=== PATIENT | male | born 1960 | race Caucasian/White ===

== ENCOUNTER 2021-09-07 19:47 | Emergency (ER) | payer OTHER ==
[~2021-09-07] VITALS: Ht 175.3 cm; Wt 120.0 kg
[2021-09-07 20:35] LABS: HEMOGLOBIN 11.6 g/dl (14.0-18.0); IMMATURE GRANULOCYTES 0.1 % (0.0-5.0); MEAN CELL VOLUME 84.6 fL CALC (80.0-100.0); MEAN CORPUSCULAR HGB 28.9 pG CALC (26.0-32.0); MEAN CORPUSCULAR HGB CONC 34.1 g/dL CAL (32.0-36.0); NEUT# 4.68 thou/uL (1.82-7.42); RED BLOOD COUNT 4.02 mill/uL (4.70-6.10); RED CELL DISTRI WIDTH 14.6 % (11.5-15.5)
[2021-09-07 20:49] LABS: ALBUMIN 3.7 g/dL (3.2-5.0); ALKALINE PHOSPHATASE 88 u/l (38-126); ANION GAP 10 (6-22 (CALC)); BILIRUBIN, TOTAL 1.2 mg/dL (0.0-1.4); BUN 20 mg/dL (8-23); BUN/CREATININE RATIO 14 (12-20 (CALC)); CARBON DIOXIDE 29 mmol/l (22-30); CHLORIDE 104 mmol/l (95-108); CREATININE 1.4 mg/dL (0.7-1.3); GFR 52 ML/MIN (>=60 (CALC)); GFR FOR AFR.AMER. > 60 ML/MIN (>=60 (CALC)); POTASSIUM 3.4 mmol/l (3.5-5.1); SGOT/AST 33 u/l (19-48); SODIUM 140 mmol/l (137-146); TOTAL PROTEIN 6.8 g/dL (6.3-8.2)
[2021-09-07 20:51] LABS: ACT PARTIAL THROMBO TIME 27.4 SECONDS (20.0-32.5); INTERNATIONAL NORMALIZED RATIO 1.4 RATIO (0.7-1.3)
[2021-09-07] MEDS ORDERED: METOLAZONE5 MG PO (22:11)
[2021-09-07] MEDS ORDERED: BACTRIM DS1 TAB PO (22:11)
[2021-09-07 22:13] VITALS: BP 151/77
== END 2021-09-07 22:36 | disposition home or self-care (01) ==
LOC: ED 19:47
PROVIDERS: Family Medicine
PROC: 0H9AXZZ Drainage of Inguinal Skin, External Approach (ICD-10-PCS; principal; 2021-09-07)
DX: L02.214 Cutaneous abscess of groin (principal); I11.0 Hypertensive heart disease with heart failure; I50.9 Heart failure, unspecified; E11.9 Type 2 diabetes mellitus without complications; Z86.73 Personal history of transient ischemic attack (TIA), and cerebral infarction without residual deficits

== ENCOUNTER 2021-09-10 10:58 | Emergency (ER) | payer OTHER ==
[~2021-09-10] VITALS: Ht 175.3 cm; Wt 120.0 kg
[~2021-09-10 10:58] MED LIST: BACTRIM DS1 TAB PO; METOLAZONE5 MG PO
[2021-09-10 12:17] VITALS: BP 139/66
== END 2021-09-10 12:23 | disposition home or self-care (01) | DRG 951 ==
LOC: ED 10:58
DX: Z48.01 Encounter for change or removal of surgical wound dressing (principal)

== ENCOUNTER 2022-08-17 12:53 | Inpatient (IN) | payer OTHER ==
[~2022-08-17] VITALS: Ht 175.3 cm; Wt 120.2 kg
[2022-08-17] VITALS (16 sets, daily range): BP systolic 119–152; BP diastolic 57–78
[2022-08-17 13:43] LABS: HEMATOCRIT 38.1 % (39.0-50.0); HEMOGLOBIN 13.1 g/dl (14.0-18.0); IMMATURE GRANULOCYTES 0.3 % (0.0-5.0); MEAN CELL VOLUME 88.4 fL CALC (80.0-100.0); MEAN CORPUSCULAR HGB 30.4 pG CALC (26.0-32.0); MEAN CORPUSCULAR HGB CONC 34.4 g/dL CAL (32.0-36.0); RED BLOOD COUNT 4.31 mill/uL (4.70-6.10); RED CELL DISTRI WIDTH 14.1 % (11.5-15.5)
[2022-08-17 13:55] LABS: ALBUMIN 3.8 g/dL (3.2-5.0); ALKALINE PHOSPHATASE 91 u/l (38-126); BUN 22 mg/dL (8-23); BUN/CREATININE RATIO 18 (12-20 (CALC)); CHLORIDE 108 mmol/l (95-108); CREATININE 1.3 mg/dL (0.7-1.3); GFR FOR AFR.AMER. > 60 ML/MIN (>=60 (CALC)); GFR OTHER RACES 56 ML/MIN (>=60 (CALC)); SGOT/AST 42 u/l (19-48); SODIUM 141 mmol/l (137-146); TOTAL PROTEIN 6.7 g/dL (6.3-8.2)
[2022-08-17 13:58] LABS: ANION GAP 16 (6-22 (CALC)); BILIRUBIN, TOTAL 2.2 mg/dL (0.0-1.4); CARBON DIOXIDE 21 mmol/l (22-30); POTASSIUM 4.1 mmol/l (3.5-5.1)
[2022-08-17] MEDS ORDERED: METFORMIN500 M2 PO (16:42)
[2022-08-17] MEDS ORDERED: JARDIANCE25 MG PO (16:43)
[2022-08-17] MEDS ORDERED: MODAFINIL200 MG PO (16:46)
[2022-08-17] MEDS ORDERED: LISINOPRIL10 MG PO (16:47)
[2022-08-17] MEDS ORDERED: AFEDITAB CR60 MG PO (16:48)
[2022-08-17] MEDS ORDERED: TORSEMIDE20 M1 PO (16:49)
[2022-08-17] MEDS ORDERED: SILDENAFIL100 MG (16:52)
[2022-08-17] MEDS ORDERED: HUMULIN R500 UNIT/1 (16:53)
[2022-08-17] MEDS ORDERED: METOPROLOL SUC200 MG PO (16:54)
[2022-08-17] MEDS ORDERED: ATORVASTATIN CA40 MG PO (16:54)
[2022-08-17] MEDS ORDERED: PREGABALIN100 MG (16:55)
[2022-08-17] MEDS ORDERED: POT CHLORIDE10 ME5 PO (16:56)
[2022-08-18 03:49] VITALS: BP 126/66
[2022-08-18 05:23] LABS: HEMATOCRIT 36.7 % (39.0-50.0); HEMOGLOBIN 12.7 g/dl (14.0-18.0); MEAN CELL VOLUME 88.4 fL CALC (80.0-100.0); MEAN CORPUSCULAR HGB 30.6 pG CALC (26.0-32.0); MEAN CORPUSCULAR HGB CONC 34.6 g/dL CAL (32.0-36.0); RED BLOOD COUNT 4.15 mill/uL (4.70-6.10)
[2022-08-18 05:51] LABS: ANION GAP 11 (6-22 (CALC)); BUN 35 mg/dL (8-23); BUN/CREATININE RATIO 26 (12-20 (CALC)); CARBON DIOXIDE 25 mmol/l (22-30); CHLORIDE 107 mmol/l (95-108); CREATININE 1.3 mg/dL (0.7-1.3); GFR FOR AFR.AMER. > 60 ML/MIN (>=60 (CALC)); GFR OTHER RACES 56 ML/MIN (>=60 (CALC)); MAGNESIUM 1.9 mg/dL (1.6-2.3); POTASSIUM 3.5 mmol/l (3.5-5.1); SODIUM 140 mmol/l (137-146)
[2022-08-18 06:17] VITALS: BP 120/61
[2022-08-18 10:24] VITALS: BP 120/54
[2022-08-18 15:16] VITALS: BP 115/53
[2022-08-18 19:22] VITALS: BP 136/68
[2022-08-19 00:14] VITALS: BP 135/67
[2022-08-19 04:21] VITALS: BP 138/70
[2022-08-19 05:22] LABS: ANION GAP 10 (6-22 (CALC)); BUN 32 mg/dL (8-23); BUN/CREATININE RATIO 26 (12-20 (CALC)); CARBON DIOXIDE 25 mmol/l (22-30); CHLORIDE 107 mmol/l (95-108); CREATININE 1.2 mg/dL (0.7-1.3); GFR FOR AFR.AMER. > 60 ML/MIN (>=60 (CALC)); GFR OTHER RACES > 60 ML/MIN (>=60 (CALC)); MAGNESIUM 1.9 mg/dL (1.6-2.3); SODIUM 139 mmol/l (137-146)
[2022-08-19 06:14] VITALS: BP 135/69
[2022-08-19 11:32] VITALS: BP 131/67
[2022-08-19 15:53] VITALS: BP 128/55
[2022-08-19 18:57] VITALS: BP 124/57
[2022-08-20 00:04] VITALS: BP 124/64
[2022-08-20 00:59] LABS: URINE BILIRUBIN - DIPSTICK NEGATIVE (NEGATIVE); URINE BLOOD DIPSTICK SMALL (NEGATIVE); URINE COLOR YELLOW; URINE GLUCOSE - DIPSTICK >=1000 mg/dL (NEGATIVE); URINE KETONE NEGATIVE (NEGATIVE); URINE PROTEIN - DIPSTICK TRACE mg/dL (NEG-TRACE); URINE SPECIFIC GRAVITY 1.015; URINE UROBILINOGEN - DIPSTICK 0.2 E.U./dL (0.2)
[2022-08-20 01:36] LABS: URINE LEUK ESTERASE NEGATIVE (NEGATIVE); URINE NITRITE - DIPSTICK NEGATIVE (Negative)
[2022-08-20 01:37] LABS: URINE BACTERIA RARE hpf; URINE EPITHELIAL CELLS FEW EPI/hpf (0-FEW)
[2022-08-20 04:19] VITALS: BP 113/55
[2022-08-20 05:27] LABS: HEMATOCRIT 33.6 % (39.0-50.0); HEMOGLOBIN 11.8 g/dl (14.0-18.0); MEAN CORPUSCULAR HGB 30.6 pG CALC (26.0-32.0); MEAN CORPUSCULAR HGB CONC 35.1 g/dL CAL (32.0-36.0); RED BLOOD COUNT 3.86 mill/uL (4.70-6.10); RED CELL DISTRI WIDTH 13.9 % (11.5-15.5)
[2022-08-20 06:10] LABS: ALKALINE PHOSPHATASE 98 u/l (38-126); ANION GAP 12 (6-22 (CALC)); BILIRUBIN, TOTAL 1.7 mg/dL (0.0-1.4); BUN 27 mg/dL (8-23); BUN/CREATININE RATIO 23 (12-20 (CALC)); CARBON DIOXIDE 26 mmol/l (22-30); CHLORIDE 108 mmol/l (95-108); CREATININE 1.2 mg/dL (0.7-1.3); GFR FOR AFR.AMER. > 60 ML/MIN (>=60 (CALC)); GFR OTHER RACES > 60 ML/MIN (>=60 (CALC)); MAGNESIUM 1.9 mg/dL (1.6-2.3); POTASSIUM 3.2 mmol/l (3.5-5.1); SGOT/AST 69 u/l (19-48); SODIUM 143 mmol/l (137-146); TOTAL PROTEIN 5.4 g/dL (6.3-8.2)
[2022-08-20 06:33] VITALS: BP 124/58
[2022-08-20] MEDS ORDERED: BUMETANIDE1 MG PO (09:41)
[2022-08-20] MEDS ORDERED: LEVAQUIN750 M1 PO (09:41)
[2022-08-20] MEDS ORDERED: BIOTUSSIN PO (09:42)
[2022-08-20 10:16] VITALS: BP 139/69
== END 2022-08-20 11:14 | disposition home or self-care (01) | DRG 291 ==
LOC: ED 12:53 → ED-I 14:55 → ED 15:07 → ED-I 15:07 → MS2 17:24
PROVIDERS: Family Medicine; ADMIT Internal Medicine; ATTEND Internal Medicine
DX: I11.0 Hypertensive heart disease with heart failure (principal); I50.33 Acute on chronic diastolic (congestive) heart failure; J18.9 Pneumonia, unspecified organism; J96.01 Acute respiratory failure with hypoxia; R04.2 Hemoptysis; J44.0 Chronic obstructive pulmonary disease with (acute) lower respiratory infection; G47.33 Obstructive sleep apnea (adult) (pediatric); E11.40 Type 2 diabetes mellitus with diabetic neuropathy, unspecified; I34.0 Nonrheumatic mitral (valve) insufficiency; Z86.73 Personal history of transient ischemic attack (TIA), and cerebral infarction without residual deficits; Z20.822 Contact with and (suspected) exposure to COVID-19; Z79.84 Long term (current) use of oral hypoglycemic drugs; Z79.4 Long term (current) use of insulin
CPT/HCPCS: J1650; Q9967

== ENCOUNTER 2023-01-02 14:20 | Observation (INO) | payer OTHER ==
[~2023-01-02] VITALS: Ht 175.3 cm; Wt 116.0 kg
[2023-01-02] VITALS (12 sets, daily range): BP systolic 94–137; BP diastolic 51–71
[~2023-01-02 14:20] MED LIST changes: +AFEDITAB CR60 MG PO; +ATORVASTATIN CA40 MG PO; +BIOTUSSIN PO; +BUMETANIDE1 MG PO; +HUMULIN R500 UNIT/1; +JARDIANCE25 MG PO; +LEVAQUIN750 M1 PO; +LISINOPRIL10 MG PO; +METFORMIN500 M2 PO; +METOPROLOL SUC200 MG PO; +MODAFINIL200 MG PO; +POT CHLORIDE10 ME5 PO; +PREGABALIN100 MG; +SILDENAFIL100 MG; +TORSEMIDE20 M1 PO
--- NOTE | 2023-01-02 14:20 | NUR ---
PT AMBULATED TO ROOM 10 FOR TRIAGE. PT WAS SENT OVER BY PCP. FREEZER MACHINE OPERATOR JACKIE CALLED TO GIVE REPORT. PT HAS HX OF STROKE IN 2019. TODAYS SYMPTOMS ARE SIMILIAR TO THE PREVIOUS SYMPTOMS PER PROVIDER AND PT.
[2023-01-02 15:12] LABS: BASO% 0.4 % (0-3); EOS% 3.7 % (0-8); IMMATURE GRANULOCYTES 0.3 % (0.0-5.0); LYMPH% 29.1 % (15-41); MEAN CELL VOLUME 87.3 fL CALC (80.0-100.0); MEAN CORPUSCULAR HGB 29.8 pG CALC (26.0-32.0); MEAN CORPUSCULAR HGB CONC 34.1 g/dL CAL (32.0-36.0); MONO% 10.2 % (2-13); NEUT# 5.98 thou/uL (1.82-7.42); NEUT% 56.3 % (42-76); RED BLOOD COUNT 5.04 mill/uL (4.70-6.10); RED CELL DISTRI WIDTH 14.7 % (11.5-15.5)
--- NOTE | 2023-01-02 15:17 | NUR ---
pt returned to room from cat scan
[2023-01-02 15:25] LABS: INTERNATIONAL NORMALIZED RATIO 1.4 RATIO (0.7-1.3); PROTHROMBIN TIME 13.5 SECONDS (9.0-12.5)
[2023-01-02 15:27] LABS: BILIRUBIN, TOTAL 1.7 mg/dL (0.2-1.3); CREATININE 1.5 mg/dL (0.7-1.3); POTASSIUM 3.4 mmol/l (3.5-5.1)
[2023-01-02 15:35] LABS: ALBUMIN 4.5 g/dL (3.2-5.0); TOTAL PROTEIN 7.6 g/dL (6.3-8.2)
--- NOTE | 2023-01-02 16:25 | NUR ---
PT RESTING IN ROOM, VSS. FALL AND SAFETY PRECAUTIONS IN PLACE.
--- NOTE | 2023-01-02 17:00 | NUR ---
PT IN BED RESTING. PT AND SPOUSE IN ROOM AND EXPLAINED PT CARE PLAN. PT AND VERBALIZE UNDERSTANDING. FALL AND SAFETY PRECAUTIONS IN PLACE. CALL LIGHT WITHIN REACH
--- NOTE | 2023-01-02 17:26 | NUR ---
PT BLOOD SUGAR TAKEN BS 62. MD NOTIFIED.
[2023-01-02 18:02] LABS: URINE BILIRUBIN - DIPSTICK NEGATIVE (NEGATIVE); URINE BLOOD DIPSTICK NEGATIVE (NEGATIVE); URINE COLOR YELLOW; URINE GLUCOSE - DIPSTICK >=1000 mg/dL (NEGATIVE); URINE KETONE TRACE mg/dL (NEGATIVE); URINE LEUK ESTERASE NEGATIVE (NEGATIVE); URINE PROTEIN - DIPSTICK 30 mg/dL (NEG-TRACE); URINE UROBILINOGEN - DIPSTICK 0.2 E.U./dL (0.2)
[2023-01-02 18:06] LABS: URINE NITRITE - DIPSTICK NEGATIVE (Negative); URINE RBC 0-2 RBC/hpf (0-5); URINE WBC 0-2 WBC/hpf (0-5)
--- NOTE | 2023-01-02 19:05 | NUR ---
ASSUMED CARE OF THE PT AT TIME.
--- NOTE | 2023-01-02 21:30 | NUR ---
REPORT RECIEVED FROM MARY KELLER, TAMARA RECIEVED, [facility] NAD, VSS. BLOOD GLUCOSE WAS 183, PT HAS A INSULIN PUMP ON WITH 500 U HUMULIN IN IT, SO PT USED THE 183 GLUCOSE THAT I RECIEVED AND INJECTED 4 UNITS INTO HIMSELF PER HIS INSTRUCTIONS FROM HIS MD. PT IN [facility], ARRIVED ON MONITOR. WILL CONT. TO MONITOR.
--- NOTE | 2023-01-02 21:36 | NUR ---
Admission Note Report Given to: OZIEL KELLER Transported by: Stretcher Transported with: Nurse Patent IV Skiver U[employer] Or Linings Location: ICU BED 4
--- NOTE | 2023-01-02 22:39 | NUR ---
ASSISTED PT GETTING UNHOOKED FROM MONITOR TO USE THE RESTROOM, STOOD WITH PT WHILE HE AROSE FRM THE BED, PT HAS NO C/O OF DIZZINESS OR WEAKNESS. ASSISTED PT TO RESTROOM WITH NO INCIDENTS. NAD. FLYNN.
[2023-01-03] VITALS (20 sets, daily range): BP systolic 86–134; BP diastolic 36–101
--- NOTE | 2023-01-03 | NUR ---
PT RESTING IN BED WITH EYES CLOSED ON HOME BIPAP. VSS, NAD.
--- NOTE | 2023-01-03 02:00 | NUR ---
PT RESTING WITH EYES CLOSED ON HOME CPAP. VSS, NAD. NIH. 0
[2023-01-03 05:12] LABS: BASO% 0.3 % (0-3); EOS% 1.8 % (0-8); HEMATOCRIT 43.4 % (39.0-50.0); HEMOGLOBIN 14.8 g/dl (14.0-18.0); IMMATURE GRANULOCYTES 0.5 % (0.0-5.0); LYMPH% 10.7 % (15-41); MEAN CORPUSCULAR HGB CONC 34.1 g/dL CAL (32.0-36.0); NEUT# 6.13 thou/uL (1.82-7.42); NEUT% 76.7 % (42-76); RED BLOOD COUNT 4.93 mill/uL (4.70-6.10); RED CELL DISTRI WIDTH 14.8 % (11.5-15.5)
[2023-01-03 05:28] LABS: ANION GAP 12 (6-22 (CALC)); BUN 20 mg/dL (8-23); BUN/CREATININE RATIO 17 (12-20 (CALC)); CALCULATED LDLCHOLESTEROL 88 mg/dL (62-129 (CALC)); CARBON DIOXIDE 26 mmol/l (22-30); CHLORIDE 109 mmol/l (95-108); CHOLESTEROL HDL RATIO 2.8 (<4.4 (CALC)); CREATININE 1.2 mg/dL (0.7-1.3); GFR FOR AFR.AMER. > 60 ML/MIN (>=60 (CALC)); GFR OTHER RACES > 60 ML/MIN (>=60 (CALC)); HDL CHOLESTEROL 59 mg/dL (39.0-59.0); SODIUM 143 mmol/l (137-146); TOTAL CHOLESTEROL 162 mg/dl (0-199); TOTAL TRIGLYCERIDES 75 mg/dl (0-149); VLDL CHOLESTROL 15 mg/dl (4-45 (CALC))
--- NOTE | 2023-01-03 05:41 | NUR ---
LAB CALLED WITH CRITICAL LOW BLOOD SUGAR OF 49, PULLED D10 BAG AND WOKE PT UP, CONNECTED PT TO GTT AND PATIENT WAS ALERT AND ORIENTED SO I GOT HIM SOME SNACKS AND MILK (PER REQUEST) AND STOPPED THE GTT. ONLY ABOUT 40-50ML INFUSED FROM D10 BAG. RINA, JORDYN.
--- NOTE | 2023-01-03 08:00 | NUR ---
RCD REPORT FROM [facility]. PT IS LILIYA CLINTON. NIH IS 0. INSULIN PUMP WAS STOPPED AND REMOVED. PT ON RA. LUNGS ARE CLEAR. PT IS PLEASANT AND DENIES ANY PAIN. BS IS 134. NO INSULIN GIVEN AT THIS TIME. PT STSTAES HE FEELS MUCH BETTER.
--- NOTE | 2023-01-03 10:00 | NUR ---
NO CHANGE IN STATUS.
--- NOTE | 2023-01-03 12:00 | NUR ---
Patient sitting up in bed. at bedside. Patient denies any pain at this time. No s/s of distress. Will continue to monitor.
--- NOTE | 2023-01-03 14:00 | NUR ---
Patient down in MRI. Will monitor when patient arrives back on unit.
[2023-01-03] MEDS ORDERED: CLONIDINE0.1 MG PO (14:22)
[2023-01-03] MEDS ORDERED: ENTRESTO 49-511 TAB PO (14:25)
[2023-01-03] MEDS ORDERED: OZEMPIC2 MG SC (14:25)
--- NOTE | 2023-01-03 16:00 | NUR ---
Patient sitting up in bed. at bedside. Patient denies any pain at this time. No s/s of distress. Will continue to monitor.
--- NOTE | 2023-01-03 16:35 | NUR ---
Neurology rounding at bedside. NIH score of 0. Awaiting MRI results.
[2023-01-03] MEDS ORDERED: PLAVIX75 MG PO (17:21)
[2023-01-03] MEDS ORDERED: ASPIRIN ADULT L81 M2 PO (17:21)
--- NOTE | 2023-01-03 18:03 | NUR ---
Discharge instructions given. Patient verbalizes understanding of same. Discharged in stable condition via Ambulatory to Home with significant other. All belongings sent with pt.
== END 2023-01-03 18:03 | disposition home or self-care (01) | DRG 92 ==
LOC: ED 14:20 → ED-I 18:15 → ED 19:03 → ICU 19:04
PROVIDERS: Family Medicine; Nurse Practitioner Family; ADMIT Internal Medicine; ATTEND Internal Medicine
DX: R20.2 Paresthesia of skin (principal); R20.0 Anesthesia of skin; R26.89 Other abnormalities of gait and mobility; I69.351 Hemiplegia and hemiparesis following cerebral infarction affecting right dominant side; I11.0 Hypertensive heart disease with heart failure; I50.32 Chronic diastolic (congestive) heart failure; E11.40 Type 2 diabetes mellitus with diabetic neuropathy, unspecified; E87.6 Hypokalemia; Z79.84 Long term (current) use of oral hypoglycemic drugs; Z79.4 Long term (current) use of insulin